=== PATIENT | female | born 1985 | race Caucasian/White ===

== ENCOUNTER 2017-10-16 16:24 | Emergency (ER) | payer BC, MEDICAID ==
[~2017-10-16] VITALS: Ht 167.6 cm; Wt 85.0 kg
[~2017-10-16 16:24] MED LIST: AMIT25TA20 PO; CYMB60CA PO; NEUR800T PO; OFLO.3%A EACH EYE
[2017-10-16 16:27] VITALS: BP 145/84; PULSE 107; RESP 16; TEMP 98.1
[2017-10-16] MEDS ORDERED: SODIUM CHLORIDE 0.9% FLUSH 10 ML FLUSH IVF PRN (16:45)
--- NOTE | 2017-10-16 16:52 | PD ---
HPI . Left flank pain Chief Complaint: Flank/Kidney Pain Time Seen by Provider: 16:39 Travel History International Travel<30 days: No Contact w/Intl Traveler<30days: No Traveled to known affect area: No History of Present Illness HPI This is a patient who is on chronic pain management with buprenorphine patches, Neurontin and an oral muscle relaxant for complex regional pain syndrome affecting her left lower extremity who presents to us complaining with left flank pain. Onset was 2 days ago. She reports the onset of urinary frequency today. She has had one episode of emesis. No fever. Pain is rated 9/10 and is exacerbated by movement. PFSH Past Medical History Asthma: Yes Depression: Yes Diminished Hearing: No Neurologic: Yes (RSD FIRST DAIGNOSED 4 YRS AGO) ?: Not : 0 Past Surgical History Oral Surgery: Yes (WISDOM TEETH SURG) Social History Alcohol Use: No Tobacco Use: Yes (1/2 PPD) Substance Use: No Allergies-Medications (Allergen,Severity, Reaction): Coded Allergies: ketorolac (Unverified Allergy, Severe, SOB, CHEST PRESSURE, 12/29/16) Reported Meds & Prescriptions Reported Meds & Active Scripts Active Floxin (Ofloxacin) 0.3 % Soln 2 Drop EACH EYE QID 7 Days Reported Elavil (Amitriptyline HCl) Unknown Strength Tab Unknown Dose PO BID Cymbalta (Duloxetine HCl) 60 Mg Cap 60 Mg PO DAILY Neurontin (Gabapentin) 800 Mg Tab 800 Mg PO BID Review of Systems Except as stated in HPI: all other systems reviewed are Neg General / Constitutional: No: Fever, Chills Gastrointestinal: Positive: Nausea, Vomiting Genitourinary: Positive: Urgency, Flank Pain Musculoskeletal: Positive: Myalgias (Chronic left lower extremity pain) Physical Exam Narrative GENERAL: Awake and alert and in no acute distress. SKIN: warm/dry. HEAD: Normocephalic. Atraumatic. EYES: Pupils equal and round. No scleral icterus. No injection or drainage. ENT: No nasal bleeding or discharge. Mucous membranes pink and moist. NECK: Trachea midline. Full range of motion without pain.. CARDIOVASCULAR: Regular rate and rhythm. RESPIRATORY: No accessory muscle use. Clear to auscultation. Breath sounds equal bilaterally. GASTROINTESTINAL: Abdomen soft. Nontender. Bowel sounds present. Nondistended. : Positive left CVA tenderness. MUSCULOSKELETAL: No obvious deformities. NEUROLOGICAL: Awake and alert. No obvious cranial nerve deficits. Motor grossly within normal limits. Normal speech. PSYCHIATRIC: Appropriate mood and affect; insight and judgment normal. Data Data Last Documented VS Vital Signs Date Time Temp Pulse Resp B/P (MAP) Pulse Ox O2 Delivery O2 Flow Rate FiO2 10/16/17 16:27 98.1 107 16 145/84 (104) Orders Orders Urinalysis - C+S If Indicated (10/16/17 16:40) Ct Abd/Pel W/O Iv Contrast (10/16/17 16:40) Iv Access Insert/Monitor (10/16/17 16:40) Sodium Chloride 0.9% Flush (Ns Flush) (10/16/17 16:45) Ed Urine Pregnancytest Poc (10/16/17 16:40) MDM Medical Decision Making Medical Screen Exam Complete: Yes Emergency Medical Condition: Yes Differential Diagnosis Differential diagnosis of flank pain includes but is not limited to kidney stone , pyelonephritis, musculoskeletal pain, PE Narrative Course This is a patient with chronic pain treated daily with Neurontin, oral muscle relaxant and buprenorphine patches who presents to us with chief complaint today of left flank pain. She is also complaining with urinary urgency. UA and CT have been ordered. Further management will be based upon the results of these studies. Her care is being turned over to the oncoming physician at 5 PM. Diagnosis Primary Impression: Left flank pain Condition: Stable Monica Rose MD Oct 16, 2017 16:52
[2017-10-16] MEDS ORDERED: PAIN PATCH (16:54)
[2017-10-16] MEDS ORDERED: "\\\"MUSCLE RELAXER\\\"" (16:54)
[2017-10-16 18:20] LABS: AMORPHOUS SEDIMENT, URINE RARE; BACTERIA, URINE OCC /hpf; BILIRUBIN, URINE NEG (NEG); BLOOD, URINE MOD (NEG); GLUCOSE,URINE NEG (NEG); KETONE, URINE 40 mg/dL (NEG); MUCUS URINE FEW /lpf (OCC); NITRITE,URINE POS (NEG); SQUAMOUS EPITHELIAL CELL URINE 7 /hpf (0-5); URINE COLOR DARK-YELLOW (YELLW/STRAW); URINE LEUKOCYTE ESTERASE NEG (NEG)
--- NOTE | 2017-10-16 20:51 | RADRPT ---
EXAM DATE: 10/16/2017 7:06 PM EDT AGE/SEX: 32 years / Female INDICATIONS: Left flank pain with pain urinating. CLINICAL DATA: This is the patient's initial encounter. Patient reports that signs and symptoms have been present for 2 days and indicates a pain score of 7/10. MEDICAL/SURGICAL HISTORY: Renal calculi. None. RADIATION DOSE: 8.49 CTDI (mGy) COMPARISON: No prior [facility] exams available for comparison. TECHNIQUE: Multiple contiguous axial images were obtained through the abdomen. Images were obtained using multiple row detector helical technique. Using dose reduction techniques, radiation dose was ke pt as low as reasonably achievable to obtain optimal diagnostic quality images. FINDINGS: Lower Lungs: The visualized lower lungs are clear. Liver: The liver has a homogeneous density without space-occupying lesion. There is no dilation of th e biliary tree. Spleen: Homogeneous density without enlargement. Pancreas: Unremarkable without mass or calcification. Kidneys: There is acute obstructive uropathy on the left secondary to a 5 mm calcified calculus at t he left ureterovesical junction. Moderate ureteropelvic caliectasis is noted on the left. Perinephric fluid is noted on the left suggesting pyelosinus extravasation. Tiny calcified nonobstructing bilate ral renal calculi are noted. Adrenal Glands: Unremarkable. Aorta: The aorta and proximal iliac vessels are grossly unremarkable without aneurysmal dilation. Bowel/Mesentery: The bowel loops are grossly unremarkable. The cecum and sigmoid colon have a normal configuration. Abdominal Wall: Intact. Retroperitoneum: No evidence of adenopathy in the retrocrural, para-aortic, or deep pelvic regions. Bladder: Contours are smooth. Reproductive Organs: No abnormal masses or calcifications seen. Inguinal: The inguinal region is unremarkable without evidence of adenopathy. Bony Structures: Unremarkable. CONCLUSION: 1. Acute obstructive uropathy on the left secondary to a 5 mm calcified calculus at the left uretero vesical junction. Moderate ureteropelvic caliectasis is noted on the left. Perinephric fluid is noted on the left suggesting pyelosinus extravasation. 2. Tiny calcified nonobstructing bilateral renal calculi are noted. Electronically signed by: Roland Brady MD 10/16/2017 8:50 PM EDT
[2017-10-16] MEDS ORDERED: HYDR-3516 PO (21:12)
[2017-10-16] MEDS ORDERED: COLA100C5 PO (21:12)
[2017-10-16] MEDS ORDERED: DIFL100T PO (21:12)
[2017-10-16] MEDS ORDERED: ZOFR4TAB3 SL (21:12)
[2017-10-16] MEDS ORDERED: MACR100C2 PO (21:12)
--- NOTE | 2017-10-16 21:13 | PD ---
Physical Exam Date Seen by Provider: Oct 16, 2017 Time Seen by Provider: 21:09 Narrative 32-year-old female came to the emergency room with history of left flank pain. She was seen by the previous ER physician. The signout was to follow-up on her CAT scan report. Due to a new radiology system the CAT scans took for a very long time to be loaded up and resulted. The result was obtained after 4 hours and showed a 5 mm stone in the mid left ureter. UA is suggestive of UTI. There is a culture pending. Have given her a dose of Macrobid. I discussed with the patient and let her know about the CAT scan report. Patient appeared to be comfortable at this present time. She has opted to go home and be seen by the urologist as an outpatient. I will give her prescriptions and discharge paper. Data Data Last Documented VS Vital Signs Date Time Temp Pulse Resp B/P (MAP) Pulse Ox O2 Delivery O2 Flow Rate FiO2 10/16/17 21:26 81 20 103/57 (72) 98 10/16/17 16:27 98.1 Orders Orders Urinalysis - C+S If Indicated (10/16/17 16:40) Ct Abd/Pel W/O Iv Contrast (10/16/17 16:40) Iv Access Insert/Monitor (10/16/17 16:40) Sodium Chloride 0.9% Flush (Ns Flush) (10/16/17 16:45) Ed Urine Pregnancytest Poc (10/16/17 16:40) Urine Culture (10/16/17 17:15) Nitrofurantoin Monohyd Macrocr (Macrobid (10/16/17 21:15) Ed Discharge Order (10/16/17 21:08) Labs Laboratory Tests Test 10/16/17 17:15 Urine Color DARK-YELLOW Urine Turbidity HAZY Urine pH 7.0 Urine Specific [place] 1.024 Urine Protein TRACE mg/dL Urine Glucose (UA) NEG mg/dL Urine Ketones 40 mg/dL Urine Occult Blood MOD Urine Nitrite POS Urine Bilirubin NEG Urine Urobilinogen 4.0 MG/DL Urine Leukocyte Esterase NEG Urine RBC 147 /hpf Urine WBC 3 /hpf Urine Squamous Epithelial Cells 7 /hpf Urine Amorphous Sediment RARE Urine Bacteria OCC /hpf Urine Mucus FEW /lpf Microscopic Urinalysis Comment CULTURE INDICATED MDM Supervised Visit with POOJA: No Diagnosis Primary Impression: Left flank pain Additional Impressions: Ureteral colic Acute unilateral obstructive uropathy Referrals: Nate Ruvalcaba MD 3 days Additional Instruction: Please call the office of the urologist was name and number been provided to you on this discharge paper on Wednesday to get an appointment. Take the medication as per the prescription direction. Return to the ER if condition worsens any other new concerns. The pain medication may cause constipation and hence there is a prescription for stool softener given to you as well. Take them while he take the pain medications. Med/Other Pt SpecificInfo: Prescription(s) given Scripts Docusate Sodium (Colace) 100 Mg Capsule 100 MG PO HS for Prevent Constipation, #20 CAP 0 Refills Prov: Herberth Rose MD 10/16/17 Fluconazole (Diflucan) 100 Mg Tab 100 MG PO DAILY for Infection, #1 TAB 0 Refills Prov: Herberth Rose MD 10/16/17 Ondansetron Odt (Zofran Odt) 4 Mg Tab 4 MG SL Q6HR Y for Nausea/Vomiting, #30 TAB 0 Refills Prov: Herberth Rose MD 10/16/17 Hydrocodone-Acetaminophen (Hydrocodone-Acetaminophen) 5-325 mg Tab 1 TAB PO Q6H Y for PAIN, #15 TAB 0 Refills Prov: Herberth Rose MD 10/16/17 Nitrofurantoin Monohydrate Macrocrystals (Macrobid) 100 Mg Cap 100 MG PO BID for Infection for 10 Days, #20 CAP 0 Refills Prov: Herberth Rose MD 10/16/17 Disposition: 01 DISCHARGE HOME Condition: Stable Herberth Rose MD Oct 16, 2017 21:13
[2017-10-16] MEDS ORDERED: NITROFURANTOIN MONOHYD MACROCR 100 MG CAP PO ONE (21:15)
[2017-10-16 21:26] VITALS: BP 103/57
== END 2017-10-16 21:37 | disposition home or self-care (01) ==
LOC: NEPD 16:24
DX: N23 Unspecified renal colic (principal); F17.200 Nicotine dependence, unspecified, uncomplicated; F32.9 Major depressive disorder, single episode, unspecified
CPT/HCPCS: 74176; 81001; 84703; 87086